=== PATIENT | female | born 1955 | race Caucasian/White ===

== ENCOUNTER 2025-02-28 06:20 | Inpatient (IN) | payer MEDICARE, OTHER ==
[~2025-02-28] VITALS: Ht 154.9 cm; Wt 64.0 kg
[2025-02-28] MEDS ORDERED: dexaMETHasone SOD PHOSPHATE 2 ML ONE (06:39)
[2025-02-28] MEDS ORDERED: VANCOMYCIN 1 GM VIAL ONE (06:39)
[2025-02-28] MEDS ORDERED: LIDOCAINE 2%-EPI 1:100,000 30 ML VIAL ONE (06:39)
[2025-02-28] MEDS ORDERED: FENTANYL PF 250MCG/5ML AMPUL ONE (07:13)
[2025-02-28] MEDS ORDERED: ROCURONIUM BROMIDE 50 MG/5 ML ONE (07:14)
[2025-02-28 07:41] LABS: ASPARTATE AMINOTRANSFERASE 31.0 U/L (15-37); CALCIUM, SERUM 9.2 mg/dL (8.5-10.1); CREATININE 0.9 mg/dL (0.6-1.3); SODIUM SERUM 142.0 mmol/L (136-145); TOTAL PROTEIN, SERUM 6.9 g/dL (6.4-8.2); UREA NITROGEN, BLOOD 12.0 mg/dL (7-18)
[2025-02-28] MEDS ORDERED: LABETALOL HCL IV 100MG VIAL ONE (08:59)
[2025-02-28] MEDS ORDERED: ACETAMINOPHEN 325 MG TABLET ONE (10:36)
[2025-02-28] MEDS: ACETAMINOPHEN 325 MG TABLET PO PRN (10:42)
[2025-02-28] MEDS ORDERED: ACETAMINOPHEN 325 MG TABLET PO PRN (12:00)
[2025-02-28] MEDS ORDERED: ONDANSETRON HCL/PF 4 MG/2 ML VIAL IV PRN (12:00)
[2025-02-28] MEDS: IV NS 0.9% 1,000 ML IV PRN (12:12)
[2025-02-28 13:14] VITALS: BP 135/69; TEMP 97.9; O2SAT 95
[2025-02-28] MEDS ORDERED: AMLO-213 PO (13:33)
[2025-02-28] MEDS ORDERED: AMYL1CAP58 PO (13:33)
[2025-02-28] MEDS ORDERED: OMEP20CA15 PO ×2 (13:33→18:47)
[2025-02-28] MEDS ORDERED: SERT50TA12 PO (13:33)
[2025-02-28] MEDS ORDERED: IBUP-1488 PO (13:33)
[2025-02-28] MEDS ORDERED: AMOX1TAB16 PO (13:33)
[2025-02-28] MEDS ORDERED: ESOM20CA37 PO (13:33)
[2025-02-28] MEDS ORDERED: ATOR20TA PO ×2 (13:33→18:47)
[2025-02-28] MEDS ORDERED: TRAM50TA2 PO (13:33)
[2025-02-28] MEDS ORDERED: LIFI1DRO4 EACHEYE (13:33)
[2025-02-28] MEDS ORDERED: CLOT15CR5 TP (13:33)
[2025-02-28] MEDS ORDERED: ACAR50TA4 PO (13:33)
[2025-02-28] MEDS ORDERED: CALC500T52 PO (13:33)
[2025-02-28] MEDS ORDERED: NPH,100I SQ (13:33)
[2025-02-28] MEDS ORDERED: LIOT5TAB11 PO (13:33)
[2025-02-28] MEDS ORDERED: ICOS1CAP PO (13:33)
[2025-02-28] MEDS ORDERED: GABA300C PO (13:33)
[2025-02-28] MEDS ORDERED: ERGO500093 PO (13:33)
[2025-02-28] MEDS ORDERED: ALBU8.5H8 IH (13:33)
[2025-02-28] MEDS ORDERED: METO25TA4 PO (13:33)
[2025-02-28] MEDS ORDERED: FENO134C PO (13:33)
[2025-02-28 15:09] VITALS: BP 115/66; TEMP 97.5; O2SAT 96
[2025-02-28 16:00] VITALS: BP 119/79; TEMP 98.6; O2SAT 96
[2025-02-28 18:14] VITALS: BP_SYST 79; TEMP 98.6; O2SAT 96
[2025-02-28] MEDS ORDERED: DEXTROSE 50%-WATER 50 ML DISP.SYRIN IV PRN (19:00)
[2025-02-28] MEDS ORDERED: INSULIN REGULAR, HUMAN 100 UNIT/ML 3 ML VIAL SQ PRN (19:00)
[2025-02-28 20:00] VITALS: BP 116/67; TEMP 98.1; O2SAT 97
[2025-02-28] MEDS: VANCOMYCIN 1 GM in IV D5W 250ml IV SCH (20:09)
[2025-02-28] MEDS: HYDROMORPHONE 1 MG/1 ML DISP.SYRIN IV PRN (20:26)
[2025-03-01] MEDS: BLOOD SUGAR DIAGNOSTIC 1 EACH STRIP IN SCH (06:39)
[2025-03-01 07:24] LABS: PLATELET COUNT (AUTO) 170 K/uL (150-450); RED BLOOD CELL COUNT(AUTO) 4.16 MIL/uL (4.0-5.2); RED CELL DISTRIBUTION WIDTH 14.0 % (11.5-15.0); WHITE BLOOD COUNT (AUTO) 6.2 K/uL (4.3-11.0)
[2025-03-01 09:00] VITALS: BP 121/55; TEMP 98.1; O2SAT 98
[2025-03-01] MEDS: diphenhydrAMINE HCL ELIX 25 MG/10 ML UDC PO ONE (09:38)
== END 2025-03-01 15:17 | disposition home or self-care (01) | DRG 142 ==
LOC: DS 06:20 → MED 11:14
PROVIDERS: ADMIT Internal Medicine; ATTEND Internal Medicine
PROC: 0NSR04Z Reposition Maxilla with Internal Fixation Device, Open Approach (ICD-10-PCS; 2025-02-28)
PROC: 0NUV07Z Supplement Left Mandible with Autologous Tissue Substitute, Open Approach (ICD-10-PCS; 2025-02-28)
PROC: 0NUT07Z Supplement Right Mandible with Autologous Tissue Substitute, Open Approach (ICD-10-PCS; 2025-02-28)
PROC: 0NUR07Z Supplement Maxilla with Autologous Tissue Substitute, Open Approach (ICD-10-PCS; 2025-02-28)
PROC: 09UR07Z Supplement Left Maxillary Sinus with Autologous Tissue Substitute, Open Approach (ICD-10-PCS; 2025-02-28)
PROC: 09UQ07Z Supplement Right Maxillary Sinus with Autologous Tissue Substitute, Open Approach (ICD-10-PCS; 2025-02-28)
PROC: 0N5V0ZZ Destruction of Left Mandible, Open Approach (ICD-10-PCS; 2025-02-28)
PROC: 0N5T0ZZ Destruction of Right Mandible, Open Approach (ICD-10-PCS; 2025-02-28)
PROC: 0NSV04Z Reposition Left Mandible with Internal Fixation Device, Open Approach (ICD-10-PCS; 2025-02-28)
PROC: 0NST04Z Reposition Right Mandible with Internal Fixation Device, Open Approach (ICD-10-PCS; 2025-02-28)
PROC: 0N5R0ZZ Destruction of Maxilla, Open Approach (ICD-10-PCS; principal; 2025-02-28 07:30)
DX: S02.40DA Maxillary fracture, left side, initial encounter for closed fracture (principal); X58.XXXA Exposure to other specified factors, initial encounter; E11.40 Type 2 diabetes mellitus with diabetic neuropathy, unspecified; E03.9 Hypothyroidism, unspecified; M27.2 Inflammatory conditions of jaws; I10 Essential (primary) hypertension; D16.5 Benign neoplasm of lower jaw bone; D11.9 Benign neoplasm of major salivary gland, unspecified; M60.88 Other myositis, other site; E11.69 Type 2 diabetes mellitus with other specified complication; D03.8 Melanoma in situ of other sites; S02.40CA Maxillary fracture, right side, initial encounter for closed fracture; S02.69XA Fracture of mandible of other specified site, initial encounter for closed fracture; Y93.9 Activity, unspecified; Y92.009 Unspecified place in unspecified non-institutional (private) residence as the place of occurrence of the external cause
CPT/HCPCS: 36415; 80053-TC; 82962-TC; 85025-TC; 88305-TC; 88311-TC; 88312-TC; A4223; A4338; A6403; C1713; G0378; J1100; J1171; J1815; J2704; J3010; J3373; J3490; J7030; J7060; Q0163